=== PATIENT | male | born 1975 | race Caucasian/White ===

== ENCOUNTER 2019-11-05 11:47 | Emergency (ER) | payer MEDICAID ==
[~2019-11-05] VITALS: Ht 170.2 cm; Wt 63.5 kg
[2019-11-05 12:00] VITALS: BP_SYST 135
[2019-11-05] MEDS ORDERED: DIPHENHYDRAMINE HCL 12.5 MG/5 ML UDC PO ONE (12:45)
[2019-11-05] MEDS ORDERED: methylPREDNISolone SOD SUCC/PF 62.5 MG/ML VIAL IM ONE (12:45)
[2019-11-05 12:50] VITALS: BP_SYST 134
== END 2019-11-05 12:59 | disposition home or self-care (01) ==
LOC: SED 11:47
DX: L50.9 Urticaria, unspecified (principal); Z88.0 Allergy status to penicillin
CPT/HCPCS: 96372; 99283; J2930

== ENCOUNTER 2019-11-06 19:30 | Emergency (ER) | payer MEDICAID ==
[~2019-11-06] VITALS: Ht 170.2 cm; Wt 63.5 kg
[2019-11-06 19:38] VITALS: BP_SYST 158
[2019-11-06] MEDS ORDERED: DIPHENHYDRAMINE HCL 25 MG CAPSULE PO ONE (20:15)
[2019-11-06] MEDS ORDERED: FAMOTIDINE 20 MG TABLET PO ONE (20:15)
[2019-11-06 20:25] VITALS: BP_SYST 158
== END 2019-11-06 20:25 | disposition home or self-care (01) ==
LOC: SED 19:30
DX: L50.9 Urticaria, unspecified (principal); Z88.0 Allergy status to penicillin
CPT/HCPCS: 99283; Q0163